=== PATIENT | female | born 2000 | race Caucasian/White ===

== ENCOUNTER 2022-11-28 13:25 | Emergency (ER) | payer OTHER, SELFPAY ==
[2022-11-28 13:34] VITALS: BP 136/97; PULSE 85; RESP 18; TEMP 36.9; O2SAT 98; BMI 41.6
--- NOTE | 2022-11-28 13:41 | US_ITS ---
The [address] [address] Patient Name: JEANNINE LOWE MRN: [id number] date: 2000 Sex: F Assigned Patient Location: ER Current Patient Location: ER Accession/Order Number: [id number] Exam Date: 11/28/2022 14:35 Report Date: 11/28/2022 15:38 At the request of: MARY HUNG Procedure: US right upper quadrant RIGHT UPPER QUADRANT ABDOMINAL ULTRASOUND: 11/28/2022 11:35 AM PDT HISTORY: abd pain TECHNIQUE: Real-time sonography of the right upper quadrant was performed. Color and spectral Doppler were used to assess select abdominal vasculature. COMPARISON: None. FINDINGS: PANCREAS: The pancreas is obscured by bowel gas. GALLBLADDER: Partially visualized by bowel gas. No gallstones or sludge demonstrated. No gallbladder wall thickening or pericholecystic fluid seen. BILIARY DUCTS: Extrahepatic bile duct at the kaci hepatis measures 3 mm. No intrahepatic or extrahepatic ductal dilatation. RIGHT KIDNEY: Kidney measures 10.3 x 4.3 x 5.6 cm. The kidney is within normal limits for size and echogenicity. No hydronephrosis, solid lesion, or stones demonstrated. LIVER: Versed sphere by bowel gas, the visualized portions are within normal limits for size and echogenicity. No focal lesion demonstrated. VASCULATURE: -Antegrade flow in the main portal vein. US/US right upper quadrant IMPRESSION: Normal ultrasound of the right upper quadrant. Electronically authenticated by: STANLEY KHAN Date: 11/28/2022 15:38
--- NOTE | 2022-11-28 13:42 | ED.GENADUL1 ---
HPI - General Adult General Chief complaint: Nausea/Vomiting/Diarrhea Stated complaint: NAUSEA, PAIN ON R SIDE Time Seen by Provider: 11/28/22 13:38 Source: patient Mode of arrival: walk-in History of Present Illness HPI narrative: patient is a 22-year-old female who presents to the emergency department for one month history of nausea and pain across the upper abdomen. Patient states pain is worse in the right upper quadrant so she and her mother are concerned she has gallbladder disease. She has seen her PCP for this in the last month but no testing has been ordered for her. She has had no fevers, vomiting. Mother states they are concerned because the patient's stool has had red chunks for the last week without north red blood. Patient states she has diarrhea intermittently. She is not concerned for . No previous abdominal surgeries. Related Data Home Medications Medication Instructions Recorded Confirmed ondansetron 4 mg disintegrating 4 mg PO Q8H 11/28/22 11/28/22 tablet Previous Rx's Medication Instructions Recorded dicyclomine 20 mg tablet 20 mg PO QID PRN abdominal pain 11/28/22 #12 tabs pantoprazole 40 mg tablet,delayed 40 mg PO DAILY #7 tabs 11/28/22 release (Protonix) promethazine 25 mg tablet 25 mg PO Q6H PRN nausea and 11/28/22 vomiting #12 tabs Allergies Allergy/AdvReac Type Severity Reaction Status Date / Time No Known Drug Allergies Allergy Verified 11/28/22 13:33 Review of Systems ROS Constitutional Denies: fever or chills Ears, nose, mouth, and throat Denies: throat pain or neck pain Respiratory Denies: shortness of breath or cough Gastrointestinal Reports: abdominal pain and nausea; Denies: vomiting or diarrhea Genitourinary Denies: painful urination Musculoskeletal Denies: back pain Integumentary/Breast Denies: rash Exam Narrative Exam Narrative: Gen.: Awake, alert, in no distress Head: Normocephalic, atraumatic ENT: Moist mucous membranes Respiratory: No respiratory distress, lungs clear bilaterally Cardio: Regular rate and rhythm Gastrointestinal: Abdomen is soft, nondistended and mildly tender to palpation in the epigastrium and right upper quadrant with no guarding or rebound Extremities: Moves extremities equally, no injuries noted Psych: Normal mood and affect Neuro: No focal neuro deficit Skin: Warm, dry, intact Constitutional Vital Signs, click to edit/add: Last Vital Signs Temp 98.5 F 11/28/22 13:34 Pulse 85 11/28/22 13:34 Resp 18 11/28/22 13:34 BP 136/97 H 11/28/22 13:34 Pulse Ox 98 11/28/22 13:34 O2 Del Method Room Air 11/28/22 13:34 Course Vital Signs Vital signs: Vital Signs Temperature 98.5 F 11/28/22 13:34 Pulse Rate 85 11/28/22 13:34 Respiratory Rate 18 11/28/22 13:34 Blood Pressure 136/97 H 11/28/22 13:34 Pulse Oximetry 98 11/28/22 13:34 Oxygen Delivery Method Room Air 11/28/22 13:34 Temperature 98.5 F 11/28/22 13:34 Pulse Rate 85 11/28/22 13:34 Respiratory Rate 18 11/28/22 13:34 Blood Pressure 136/97 H 11/28/22 13:34 Pulse Oximetry 98 11/28/22 13:34 Oxygen Delivery Method Room Air 11/28/22 13:34 Medical Decision Making MDM Narrative Medical decision making narrative: lab studies within normal limits including bilirubin, LFTs. Ultrasound of the right upper quadrant with no evidence of acute process. Patient treated for abdominal pain with Protonix,Phenergan and Bentyl. Follow-up with PCP. Abdomen is soft and benign on recheck by attending physician at discharge. Medical Records Medical records reviewed: Yes I reviewed the patient's medical records Lab Data Lab results reviewed: Yes I reviewed the patient's lab results Labs: Lab Results 11/28/22 Range/Units 13:40 WBC 8.5 (4.0-11.0) 10^3/uL RBC 5.11 (4.20-5.40) 10^6/uL Hgb 14.2 (12.0-16.0) g/dL Hct 43.1 (36.0-48.0) % MCV 84.3 (81.0-99.0) fL MCH 27.8 (26.7-34.0) pg MCHC 32.9 (29.9-35.2) g/dL RDW 12.4 (11.0-15.0) % Plt Count 446 (150-450) 10^3/uL MPV 10.1 (9.5-13.5) fL Neut % (Auto) 59.5 (43.0-75.0) % Lymph % (Auto) 29.3 (20.5-60.0) % [place] % (Auto) 9.6 (1.7-12.0) % Eos % (Auto) 0.7 L (0.9-7.0) % Baso % (Auto) 0.7 (0.2-2.0) % Neut # (Auto) 5.0 (1.4-6.5) 10^3/uL Lymph # (Auto) 2.5 (1.2-3.8) 10^3/uL [place] # (Auto) 0.8 (0.3-0.8) 10^3/uL Eos # (Auto) 0.1 (0.0-0.7) 10^3/uL Baso # (Auto) 0.1 (0.0-0.1) 10^3/uL Abs Immat Gran (auto) 0.02 (0.00-0.03) 10^3/uL Imm/Tot Granulo (auto) 0.2 (0.0-0.5) % Sodium 135 L (136-145) mmol/L Potassium 3.8 (3.5-5.1) mmol/L Chloride 102 (98-107) mmol/L Carbon Dioxide 24.4 (21.0-32.0) mmol/L Anion Gap 12.4 BUN 5.0 L (7.0-18.0) mg/dL Creatinine 0.65 (0.55-1.02) mg/dL Est GFR ( Amer) >60 (>=60) Est GFR (Non-Af Amer) >60 (>=60) BUN/Creatinine Ratio 7.7 Glucose 105 (74-106) mg/dL Calcium 9.2 (8.5-10.1) mg/dL Total Bilirubin 0.4 (0.2-1.0) mg/dL AST 14 L (15-37) U/L ALT 38 (14-59) U/L Alkaline Phosphatase 75 (46-116) U/L Total Protein 8.0 (6.4-8.2) g/dL Albumin 4.2 (3.4-5.0) g/dL Globulin 3.8 g/dL Albumin/Globulin Ratio 1.1 Lipase 40.0 L (73.0-393.0) U/L Serum HCG, Qual Negative (NEGATIVE) Imaging Data US - abdomen: Attestation: I have reviewed the pertinent imaging results. Radiologist's impression: Procedure: US right upper quadrant RIGHT UPPER QUADRANT ABDOMINAL ULTRASOUND: 11/28/2022 11:35 AM PDT HISTORY: abd pain TECHNIQUE: Real-time sonography of the right upper quadrant was performed. Color and spectral Doppler were used to assess select abdominal vasculature. COMPARISON: None. FINDINGS: PANCREAS: The pancreas is obscured by bowel gas. GALLBLADDER: Partially visualized by bowel gas. No gallstones or sludge demonstrated. No gallbladder wall thickening or pericholecystic fluid seen. BILIARY DUCTS: Extrahepatic bile duct at the kaci hepatis measures 3 mm. No intrahepatic or extrahepatic ductal dilatation. RIGHT KIDNEY: Kidney measures 10.3 x 4.3 x 5.6 cm. The kidney is within normal limits for size and echogenicity. No hydronephrosis, solid lesion, or stones demonstrated. LIVER: Versed sphere by bowel gas, the visualized portions are within normal limits for size and echogenicity. No focal lesion demonstrated. VASCULATURE: -Antegrade flow in the main portal vein. IMPRESSION: Normal ultrasound of the right upper quadrant. Discharge Plan Discharge Chief Complaint: Nausea/Vomiting/Diarrhea Clinical Impression: Abdominal pain Patient Disposition: Home, Self-Care Time of Disposition Decision: 15:51 Condition: Good Prescriptions / Home Meds: New dicyclomine 20 mg tablet 20 mg PO QID PRN (Reason: abdominal pain) Qty: 12 0RF pantoprazole [Protonix] 40 mg tablet,delayed release (DR/EC) 40 mg PO DAILY Qty: 7 0RF promethazine 25 mg tablet 25 mg PO Q6H PRN (Reason: nausea and vomiting) Qty: 12 0RF No Action ondansetron 4 mg tablet,disintegrating 4 mg PO Q8H Instructions: Acute Abdominal Pain (ED) Stand Alone Forms: Portal Instructions Referrals: Jo-Ann Saleh MD [Primary Care Provider] - 1 week
[2022-11-28 13:49] LABS: Basophils Absolute Auto 0.1 10^3/uL (0.0-0.1); Basophils Percent Auto 0.7 % (0.2-2.0); Eosinophils Absolute Auto 0.1 10^3/uL (0.0-0.7); Eosinophils Percent Auto 0.7 % (0.9-7.0); Hematocrit 43.1 % (36.0-48.0); Hemoglobin 14.2 g/dL (12.0-16.0); Immature Granulocytes Abs Auto 0.02 10^3/uL (0.00-0.03); Immature Granulocytes Pct Auto 0.2 % (0.0-0.5); Lymphocytes Absolute Auto 2.5 10^3/uL (1.2-3.8); Lymphocytes Percent Auto 29.3 % (20.5-60.0); Mean Corpuscular HGB Conc 32.9 g/dL (29.9-35.2); Mean Corpuscular Hemoglobin 27.8 pg (26.7-34.0); Mean Corpuscular Volume 84.3 fL (81.0-99.0); Mean Platelet Volume 10.1 fL (9.5-13.5); Monocytes Absolute Auto 0.8 10^3/uL (0.3-0.8); Monocytes Percent Auto 9.6 % (1.7-12.0); Neutrophils Percent Auto 59.5 % (43.0-75.0); Platelet Count 446 10^3/uL (150-450); Red Blood Count 5.11 10^6/uL (4.20-5.40); Red Cell Distribution Width 12.4 % (11.0-15.0); White Blood Count 8.5 10^3/uL (4.0-11.0)
[2022-11-28 14:02] LABS: Alanine Aminotransferase 38 U/L (14-59); Albumin Globulin Ratio 1.1; Albumin Level 4.2 g/dL (3.4-5.0); Alkaline Phosphatase 75 U/L (46-116); Anion Gap 12.4; Aspartate Amino Transferase 14 U/L (15-37); BUN Creatinine Ratio 7.7; Bilirubin Total 0.4 mg/dL (0.2-1.0); Calcium 9.2 mg/dL (8.5-10.1); Carbon Dioxide 24.4 mmol/L (21.0-32.0); Chloride 102 mmol/L (98-107); Estimated GFR (African America >60 (>=60); Estimated GFR (Non-African Ame >60 (>=60); Globulin 3.8 g/dL; Glucose 105 mg/dL (74-106); Potassium 3.8 mmol/L (3.5-5.1); Sodium 135 mmol/L (136-145)
[2022-11-28 14:04] LABS: HCG Qualitative NEGATIVE (NEGATIVE)
== END 2022-11-28 16:05 | disposition home or self-care (01) ==
PROVIDERS: Physician Assistant; Emergency Provider Emergency Medicine; PCP Family Medicine
DX: R10.9 Unspecified abdominal pain (principal)
CPT/HCPCS: 36415; 76705; 80053; 81003; 83690; 84703; 85025; 99284

== ENCOUNTER 2024-05-26 02:19 | Emergency (ER) | payer OTHER, SELFPAY ==
[2024-05-26] VITALS (9 sets, daily range): BP systolic 125–151; BP diastolic 63–88; PULSE 107–140; TEMP 38–38.6; O2SAT 94–95; BMI 45.7
--- NOTE | 2024-05-26 02:27 | ED.GENADUL1 ---
HPI HPI - General Adult General Chief complaint: Upper Respiratory Infection Stated complaint: FEVER, SOB Time Seen by Provider: 05/26/24 02:20 History of Present Illness HPI narrative: Patient reports a 2-day illness of fever, body aches and cough. She woke up today with temp 104 and pains in her chest. Related Data Home Medications ?Medication ?Instructions ?Recorded ?Confirmed sertraline 100 mg tablet (Zoloft) 100 mg PO DAILY 05/26/24 05/26/24 Allergies Allergy/AdvReac Type Severity Reaction Status Date / Time No Known Drug Allergies Allergy Verified 05/26/24 02:22 Opioid HPI Opioid Management Most Recent Opioid Data: No Data to Display PFSH PFS Social History Little interest or pleasure in doing things: not at all Feeling down, depressed, or hopeless: not at all Exam Narrative Exam Narrative: Patient is febrile and tachycardic upon arrival. She does not appear toxic. HEENT exam is normal to inspection. Neck is supple. Lung sounds are clear to auscultation bilaterally with good air entry. Heart has rapid rate with regular rhythm. Abdomen is protuberant, soft nontender. There is no leg tenderness or edema. Skin is warm and dry with no rash. Speech and mentation are clear and intact. There is no facial asymmetry. She moves all extremities actively. Constitutional Vital Signs, click to edit/add: Last Vital Signs Temp 100.4 F 05/26/24 03:42 Pulse 107 H 05/26/24 03:42 Resp 21 H 05/26/24 02:44 BP 125/63 05/26/24 04:04 Pulse Ox 95 05/26/24 04:20 O2 Del Method Room Air 05/26/24 03:31 Course Vital Signs Vital signs: Vital Signs Temperature 101.5 F H 05/26/24 02:22 Pulse Rate 140 H 05/26/24 02:22 Respiratory Rate 20 05/26/24 02:22 Blood Pressure 151/88 H 05/26/24 02:22 Pulse Oximetry 94 L 05/26/24 02:22 Oxygen Delivery Method Room Air 05/26/24 02:22 Temperature 100.4 F 05/26/24 03:42 Pulse Rate 107 H 05/26/24 03:42 Respiratory Rate 21 H 05/26/24 02:44 Blood Pressure 125/63 05/26/24 04:04 Pulse Oximetry 95 05/26/24 04:20 Oxygen Delivery Method Room Air 05/26/24 03:31 Medical Decision Making MDM Narrative Medical decision making narrative: Patient presents with fever and tachycardia. With acetaminophen and ibuprofen her temperature came down to 100 degrees and the heart rate also slowed down. On physical exam no infectious focus was found. The white count was normal. Nasal swabs are negative for COVID and influenza. Chest x-ray did not show infiltrate. Patient's illness is felt to be a viral etiology and she is advised supportive care with early follow-up with PCP and return to the ED anytime for worsening symptoms. Lab Data Labs: Lab Results 05/26/24 05/26/24 Range/Units 02:25 02:38 WBC 8.7 (4.0-11.0) 10^3/uL RBC 4.87 (4.20-5.40) 10^6/uL Hgb 13.5 (12.0-16.0) g/dL Hct 40.8 (36.0-48.0) % MCV 83.8 (81.0-99.0) fL MCH 27.7 (26.7-34.0) pg MCHC 33.1 (29.9-35.2) g/dL RDW 12.5 (11.0-15.0) % Plt Count 360 (150-450) 10^3/uL MPV 10.2 (9.5-13.5) fL Seg Neuts % (Manual) 82.0 H (43.0-75.0) Lymphocytes % (Manual) 9.0 L (20.5-60.0) % Monocytes % (Manual) 9.0 (1.7-12.0) % Eosinophils % (Manual) 0.0 L (0.9-7.0) % Basophils % (Manual) 0.0 L (0.2-2.0) % Neutrophils # (Manual) 7.13 H (1.4-6.5) 10^3/uL Lymphocytes # (Manual) 0.78 L (1.20-3.80) 10^3/uL Monocytes # (Manual) 0.78 (0.30-0.80) 10^3/uL Eosinophils # (Manual) 0.00 (0.00-0.70) 10^3/uL Basophils # (Manual) 0.00 (0.00-0.10) 10^3/uL D-Dimer 0.47 (<=0.59) mg/L FEU Sodium 136 (136-145) mmol/L Potassium 3.9 (3.5-5.1) mmol/L Chloride 102 (98-107) mmol/L Carbon Dioxide 24.1 (21.0-32.0) mmol/L Anion Gap 13.8 BUN 7.0 (7.0-18.0) mg/dL Creatinine 0.91 (0.55-1.02) mg/dL Est GFR ( Amer) >60 (>=60 mL/min/1.73m^2) Est GFR (Non-Af Amer) >60 (>=60 mL/min/1.73m^2) BUN/Creatinine Ratio 7.7 Glucose 131 H (74-106) mg/dL Calcium 8.7 (8.5-10.1) mg/dL Total Bilirubin 0.2 (0.2-1.0) mg/dL AST 19 (15-37) U/L ALT 27 (14-59) U/L Alkaline Phosphatase 96 (46-116) U/L Troponin I High Sens <4.0 L (4.0-51.3) pg/mL Total Protein 7.4 (6.4-8.2) g/dL Albumin 3.7 (3.4-5.0) g/dL Globulin 3.7 g/dL Albumin/Globulin Ratio 1.0 Serum HCG, Qual Negative (NEGATIVE) Influenza Type A Ag Negative Influenza Type B Ag Negative SARS-CoV-2 Ag (CV2AG) Negative (NEGATIVE) Discharge Plan Discharge Chief Complaint: Upper Respiratory Infection Clinical Impression: Viral infection Patient Disposition: Home, Self-Care Time of Disposition Decision: 04:33 Condition: Good Mode of Transportation: Private Vehicle Prescriptions / Home Meds: No Action sertraline [Zoloft] 100 mg tablet 100 mg PO DAILY Print Language: Kittitian Instructions: Viral Syndrome (ED) Additional Instructions: Tylenol 1000 mg 3 times a day for fever as needed. Ibuprofen 400 mg every 6 hours for fever or pain as needed. Drink extra fluids. Robitussin DM for cough if needed. Follow-up in 2 to 3 days with your primary care physician if not much better. Return anytime for worsening symptoms. Referrals: Jo-Ann Saleh MD [Primary Care Provider] - 1 week
--- NOTE | 2024-05-26 02:28 | ECG_ITS ---
The [facility] Test Date: 2024-05-26 Pat Name: JEANNINE LOWE Department: Room: - Gender: Female Flue Blower: : 2000 Requested By: DANTE RAMIREZ Order Number: [id number] Reading MD: AMANDA SHARMA Measurements Intervals [place] Rate: 116 P: 12 SC: 120 QRS: 56 QRSD: 74 T: 14 QT: 298 QTc: 367 Interpretive Statements 1120 Sinus tachycardia 9140 abnormal rhythm ECG No previous ECG available for comparison Electronically Signed On 05-26-2024 6:46:32 EST by AMANDA SHARMA
[2024-05-26 02:44] LABS: Influenza Virus A Antigen Negative; Influenza Virus B Antigen Negative; Internal Control Within Normal Limits
[2024-05-26 02:45] LABS: Internal Control Within Normal Limits; SARS-CoV-2 Ag NEGATIVE (NEGATIVE)
[2024-05-26 02:52] LABS: Hematocrit 40.8 % (36.0-48.0); Hemoglobin 13.5 g/dL (12.0-16.0); Mean Corpuscular HGB Conc 33.1 g/dL (29.9-35.2); Mean Corpuscular Hemoglobin 27.7 pg (26.7-34.0); Mean Corpuscular Volume 83.8 fL (81.0-99.0); Mean Platelet Volume 10.2 fL (9.5-13.5); Platelet Count 360 10^3/uL (150-450); Red Blood Count 4.87 10^6/uL (4.20-5.40); Red Cell Distribution Width 12.5 % (11.0-15.0); White Blood Count 8.7 10^3/uL (4.0-11.0)
[2024-05-26] MEDS: 0.9 % SODIUM CHLORIDE 1,000 ML 1000 ML IV (02:53)
[2024-05-26] MEDS: IBUPROFEN 600 MG TABLET PO (02:53)
[2024-05-26] MEDS: ACETAMINOPHEN 500 MG TABLET 1000 MG PO (02:53)
[2024-05-26 03:11] LABS: Alanine Aminotransferase 27 U/L (14-59); Albumin Level 3.7 g/dL (3.4-5.0); Alkaline Phosphatase 96 U/L (46-116); Anion Gap 13.8; Aspartate Amino Transferase 19 U/L (15-37); BUN Creatinine Ratio 7.7; Bilirubin Total 0.2 mg/dL (0.2-1.0); Calcium 8.7 mg/dL (8.5-10.1); Carbon Dioxide 24.1 mmol/L (21.0-32.0); Chloride 102 mmol/L (98-107); Estimated GFR (African America >60 (>=60 mL/min/1.73m^2); Estimated GFR (Non-African Ame >60 (>=60 mL/min/1.73m^2); Globulin 3.7 g/dL; Glucose 131 mg/dL (74-106); Potassium 3.9 mmol/L (3.5-5.1); Sodium 136 mmol/L (136-145); Total Protein 7.4 g/dL (6.4-8.2); Troponin I High Sensitivity <4.0 pg/mL (4.0-51.3)
[2024-05-26 03:16] LABS: Lymphocytes Absolute Manual 0.78 10^3/uL (1.20-3.80); Monocytes Absolute Manual 0.78 10^3/uL (0.30-0.80); Segmented Neut Absolute Manual 7.13 10^3/uL (1.4-6.5)
[2024-05-26 03:17] LABS: D Dimer 0.47 mg/L FEU (<=0.59)
--- NOTE | 2024-05-26 03:38 | XR_ITS ---
The [address] [address] Patient Name: JEANNINE LOWE MRN: [id number] date: 2000 Sex: F Assigned Patient Location: ER Current Patient Location: ER Accession/Order Number: [id number] Exam Date: 05/26/2024 03:46 Report Date: 05/26/2024 04:18 At the request of: CARL JUSTICE Procedure: XR chest 2V EXAM: XR chest 2V HISTORY: fever, cough COMPARISON: None. TECHNIQUE: 2 views of the chest were obtained. FINDINGS: The cardiac silhouette is normal in size. The lungs are clear. There is no significant pneumothorax or pleural effusion. No acute osseous abnormality is seen. XR/XR chest 2V IMPRESSION: 1. No acute cardiopulmonary abnormality. Electronically authenticated by: Indy CANNON Date: 05/26/2024 04:18
[2024-05-26 03:48] LABS: HCG Qualitative NEGATIVE (NEGATIVE); Internal Control Within Normal Limits
== END 2024-05-26 04:45 | disposition home or self-care (01) ==
PROVIDERS: Emergency Provider Emergency Medicine; PCP Family Medicine
DX: B34.9 Viral infection, unspecified (principal); R50.9 Fever, unspecified
CPT/HCPCS: 36415; 71046; 80053; 84484; 84703; 85007; 85027; 85378; 87804; 87811; 93005; 99285